=== PATIENT | female | born 1990 | race African-American/Black ===

== ENCOUNTER 2019-08-30 00:17 | Day surgery (SDC) | payer OTHER, SELFPAY ==
[2019-08-16 13:50] VITALS: BMI 30.2
[2019-08-30] VITALS (10 sets, daily range): BP systolic 99–122; BP diastolic 55–65; PULSE 87–105; RESP 14–16; TEMP 36.6–36.7; O2SAT 94–100
[2019-08-30] MEDS: LACTATED RINGERS 1,000 ML 30 ML IV CONT ×2 (11:50→15:28)
--- NOTE | 2019-08-30 12:07 | WPDHPUPDATE1 ---
History and Physical Update Update Date/Time: 08/30/19 12:07 History and Physical has been reviewed, including an updated exam of the patient. There are NO changes in the patient's condition. Risks, benefits, and alternatives have been discussed and questions answered. Patient agrees to proceed with procedure.
--- NOTE | 2019-08-30 12:27 | WPDANESEPPF ---
Anes - Initial Pre Proc Eval Procedure: Operation Date: 08/30/19 13:30 Proposed Procedures p Laparoscopic Bilateral Ovarian Cystectomy with Cauterization of Endometrosis - Carie Dao MD Date/Time: 08/30/19 12:27 Surgeon: Carie Dao MD Pre Op Diagnosis: Lt Sided Ovarian Cyst, Pelvic Pain Patient Data Age: 28 Gender: F Height: 5 ft 4 in Weight: 77.8 kg Last Vital Signs Temp 36.6 C 08/30/19 12:02 Pulse 87 08/30/19 12:02 Resp 16 08/30/19 12:02 BP 106/60 08/30/19 12:02 Pulse Ox 100 08/30/19 12:02 Allergies Allergy/AdvReac Type Severity Reaction Status Date / Time No Known Allergies Allergy Verified 08/30/19 11:33 Home Medications Medication Instructions Recorded Confirmed Type cyclobenzaprine 10 mg PO TID PRN 3 Days #10 tablet 06/10/19 08/30/19 Rx Patient hx anesthesia problems: none Family hx anesthesia problems: none PMFSH Social History Social History Gender identity (if verbalized by the patient): Female Anes - Eval Final PreProcedure Day of Procedure 08/30/19 12:27 Patient weight: overweight Heart: regular rate and rhythm Lungs: clear to auscultation Airway: Mallampati scale class II Neurological: alert and oriented Last oral intake: >/= 8 hours ASA classification: II Emergent: no Anesthetic plan: proceed Anesthesia type and monitoring: general ETT and standard monitoring Informed Consent: The patient's anesthetic plan and its attendant risks and benefits were discussed with the patient/family/POA. Questions were solicited and answers provided to the satisfaction of the patient/family/POA.
--- NOTE | 2019-08-30 15:41 | PM.OP ---
Procedure Note - Brief Procedure Note - Brief Date of procedure: 08/30/19 Pre-op diagnosis: Lt Sided Ovarian Cyst, Pelvic Pain Post-op diagnosis: other (pelvic pain, bilateral ovarian endometriomas, endometriosis, extensive pelvic adhesions) Procedure performed: L/S bilateral ovarian cystectomies, excision of endometriosis, extensive lysis of adhesions (by myself first the Anesthesia: GETA Surgeon: Carie Dao MD Estimated blood loss (mL): 75 Drains: No Packing: No Pathology: yes Complications: No immediate complications Condition: stable Disposition: PACU Findings: Extensive adhesions involving colon, appendix, uterus, bilateral ovaries; endometriomas of both ovaries; endometriosis implants on both sides of pelvic peritoneum; normal uterus other than adhesions; normal fallopian tubes with minimal adhesions
--- NOTE | 2019-08-30 16:19 | SUR.PHASEI ---
1620 - family updated on pt's status
--- NOTE | 2019-08-30 17:33 | P.OP_ITS ---
Procedure Note - Detailed Date of procedure: 08/30/19 Pre-op diagnosis: Lt Sided Ovarian Cyst, Pelvic Pain Post-op diagnosis: other (Pelvic adhesions) Procedure performed: Laparoscopic enterolysis Description of procedure: * I was called by Dr. Dao to evaluate the patient intraoperatively. Patient was already intubated, prepped and draped, with ports in place. Bilateral ovarian cystectomy had already been performed. There were dense adhesions in the pelvis with the sigmoid colon and rectum adherent to the posterior wall of the uterus. I was asked to evaluate the patient and help take down any further adhesions to allow for adequate visualization of the entire uterus. I carefully inspected the abdomen and pelvis. Careful sharp and blunt dissection was carried out laparoscopically along the anterior surface of the rectum going down distally. The posterior wall of the uterus as well as parts of the wall of the ovary were carefully dissected free from the sigmoid colon and rectum. The appendix was also adher ent down in this region and this was carefully freed up to allow for careful inspection. No further abnormalities were noted along these areas, and the bowel all appeared healthy and viable. Most of the posterior wall of the uterus was able to be visualized, and no other pathology was noted, therefore no further adhesiolysis was performed at this point. The procedure was then returned back over to the hands of Dr. Dao. Please refer to her operative report for further details. Anesthesia: GETA Surgeon: Janak Martinez DO Estimated blood loss (mL): 5 Complications: No immediate complications Findings: This is a 28-year-old woman who presented for laparoscopic bilateral ovarian cystectomy. Intraoperatively, she was found to have significant adhesions of the sigmoid colon and rectum to the patient's ovary and uterus. I was called in to evaluate and possibly assist with further adhesiolysis. The uterus appeared densely adherent to the sigmoid colon and rectum, therefore I will assist with adhesiolysis for further visualization with the procedure. Due to patient already being intubated, consent unable to be obtained but implied due to the nature of the procedure. Careful laparoscopic evaluation was performed. Ovarian cystectomy had already been performed. There were still several adhesions of the right ovary and posterior uterus on to the distal sigmoid and rectum. I carefully took down some of these adhesions using blunt dissection and sharp dissection with laparoscopic scissors. This allowed me to visualize most of the sigmoid colon and rectum. This appeared to be almost completely freed up from the uterus. There did not appear to be any injuries to the bowel, and no other significant abnormalities were noted.
--- NOTE | 2019-08-30 18:45 | OP_ITS ---
DATE OF PROCEDURE: 08/30/2019 PREOPERATIVE DIAGNOSES: Pelvic pain and bilateral ovarian cysts. POSTOPERATIVE DIAGNOSES: Pelvic pain, bilateral endometriomas, endometriosis, and extensive pelvic adhesions. PROCEDURE PERFORMED: Laparoscopic bilateral ovarian cystectomies, excision of endometriosis, extensive lysis of adhesions first by myself and then further lysis of adhesions by Dr. Martinez. INTRAOPERATIVE CONSULTATION BY: Dr. Martinez. ANESTHESIA: General endotracheal tube. ESTIMATED BLOOD LOSS: 75 mL. COMPLICATIONS: None. FINDINGS: Bilaterally enlarged ovaries both filled with chocolate fluid consistent with endometriomas, extensive endometriosis implants along the pelvic peritoneum, extensive dense adhesions involving the colon to the uterus, bilateral ovaries to the colon and uterus, appendix to the colon and right ovary. INDICATIONS: A 28-year-old G0 who came for pelvic pain, was found to have bilateral moderate-sized ovarian cysts suspicious for endometriomas on ultrasound. She opted and signed consent for laparoscopic bilateral ovarian cystectomies after the risks, benefits, complications, and alternatives were discussed. DESCRIPTION OF PROCEDURE: For the procedure, she was taken to the operating room where general anesthesia was obtained. She was prepared and draped in the normal sterile fashion in the dorsal lithotomy position. Marcaine was injected infraumbilically and a 5 mm skin incision was made in the infraumbilical fold with a scalpel. A 5 mm non-bladed trocar was then placed with the camera in the trocar under direct visualization. Insufflation was begun and she was placed in Trendelenburg. Another 5 mm trocar was placed in the right lower quadrant under direct visualization. Inspection of the pelvis revealed the findings as noted above. A 10 mm trocar was then placed in the midline suprapubic area under direct visualization. First, adhesions from the right adnexa to the right pelvic sidewall were taken down. There were some filmy adhesions between the uterus and the left anterior pelvic peritoneum that were taken down easily. The appendix was stretched down in between the 2 ovaries and adherent to the colon and right ovary and the colon was densely adherent to the posterior midline of the uterus. The adhesions between the ovaries and uterus were removed to the extent possible and between the ovaries and colon. I could never develop a good plane between the uterus and colon. The right ovarian cyst was ruptured inadvertently trying to do lysis of adhesions with large amount of chocolate-appearing fluid noted. The cyst wall was then teased out using a laparoscopic grasper and that ovary was copiously irrigated and then found to be hemostatic. With further lysis of adhesions, erring on the side of the ovary rather than the uterus or colon, the left ovarian cyst was inadvertently ruptured as well with chocolate fluid noted from that ovary as well. That cyst wall was also removed to the extent possible and that cyst cavity was irrigated. The appendix and colon were still densely adherent to the posterior uterus and the appendix to the right ovary. I came to a point where I did not feel safe to proceed with any further lysis of adhesions and asked for an intraoperative consultation from Dr. Martinez from General Surgery. He did come in and did further lysis of adhesions mainly between the posterior uterus and colon as well as the ovaries to some degree. He was able to free up the appendix and most of the adhesions between the colon and uterus and eventually advised quitting with the lysis of adhesions, so the pelvis was irrigated once again. All operative sites were noted to be hemostatic. The Alan-Milan device along with a 0 Vicryl was used to close the suprapubic t
== END 2019-08-30 17:57 | disposition home or self-care (01) ==
PROVIDERS: Visit Provider Obstetrics & Gynecology
PROC: (CPT 49320; principal; 2019-08-30 13:30)
DX: N83.202 Unspecified ovarian cyst, left side (principal); N83.201 Unspecified ovarian cyst, right side; N80.3 Endometriosis of pelvic peritoneum; N73.6 Female pelvic peritoneal adhesions (postinfective); R10.2 Pelvic and perineal pain
CPT/HCPCS: 58662; 88305; A9270; J1100; J2250; J2270; J2405; J2704; J7120

== ENCOUNTER 2021-02-13 10:37 | Emergency (ER) | payer OTHER, SELFPAY ==
--- NOTE | ~2021-02-13 | XR_ITS ---
EXAMINATION: XR knee RT 3V DATE: 02/13/2021 12:04 INDICATION: Right knee pain. TECHNIQUE: 3 views of right knee were obtained. COMPARISON: None. FINDINGS: Bone alignment is normal. No fracture. Joint spaces are normal. No knee joint effusion. IMPRESSION: 1. Normal right knee. Reviewed, dictated and finalized at location A. IMPRESSION: 1. Normal right knee.
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
[2021-02-13 10:41] VITALS: BP 119/74; PULSE 81; RESP 14; TEMP 37.1; O2SAT 100
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
--- NOTE | 2021-02-13 11:52 | PC.NURSE ---
Patient to radiology.
[2021-02-13] MEDS: KETOROLAC 30 MG/ML VIAL (*BKC) IM (12:13)
[2021-02-13 12:43] VITALS: TEMP 37.1
[2021-02-13 12:51] VITALS: BP 111/70; PULSE 72; RESP 20; O2SAT 100
== END 2021-02-13 12:55 | disposition home or self-care (01) ==
PROVIDERS: Emergency Provider Emergency Medicine
DX: S13.4XXA Sprain of ligaments of cervical spine, initial encounter (principal); S50.02XA Contusion of left elbow, initial encounter; V49.40XA Driver injured in collision with unspecified motor vehicles in traffic accident, initial encounter
CPT/HCPCS: 72040; 73080; 73562; 96372; 99284; J1885; L0140

== ENCOUNTER → 2022-11-27 09:17 | Outpatient (CLI) | payer OTHER, SELFPAY ==
--- NOTE | ~2022-11-27 | US_ITS ---
US OB <= 14 weeks fetus DATE: 11/27/2022 09:40 INDICATION: Uncertain dates TECHNIQUE: Real-time and color flow imaging COMPARISON: None FINDINGS: The uterus measures 15.5 cm height, 8.1 cm AP and 11.3 cm transverse dimension. There is an intrauterine gestational sac with live covarrubias fetus. The placenta is posterior. Normal amount of amniotic fluid. heart rate of 152 bpm. [place]-rump length averages 6.28 cm consistent with 12 weeks 5 days +/- 1 week 1 day estimated gestati onal age. The ovaries are not visualized. No pelvic free fluid collection is noted. IMPRESSION: Estimated gestational age of 12 weeks 5 days +/- 1 week 1 day; MARIANN: 06/06/2023 Reviewed, dictated and finalized at Location A. Reviewed, dictated and finalized at location []
== END ==
PROVIDERS: PCP Nurse Practitioner; Visit Provider Nurse Practitioner
DX: Z36.87 Encounter for antenatal screening for uncertain dates (principal); Z3A.12 12 weeks gestation of pregnancy
CPT/HCPCS: 76801

== ENCOUNTER 2023-01-07 09:49 | Outpatient (CLI) | payer OTHER, SELFPAY ==
--- NOTE | ~2023-01-07 | US_ITS ---
EXAMINATION: US OB /maternal detail DATE: 01/07/2023 10:45 INDICATION: anatomic survey. TECHNIQUE: Real-time ultrasound of the pelvis was performed. COMPARISON: Ultrasound 11/27/2022 FINDINGS: There is a single living fetus in variable presentation. The placenta is posterior, 3.0 cm from the cervix. heart rate is 138 beats per minute (bpm). The amniotic fluid volume is subjectively nor mal. The following biometric data were obtained: Biparietal diameter (BPD): 4.2 cm; head circumference (HC): 15.6 cm; abdominal circumference (AC): 14 .3 cm; femur length (FL): 3.2 cm. These measurements are concordant. Estimated weight is 303 g +/- 45 g, which correlates with the 92nd percentile when 06/05/23 is used as estimated date of delivery. As single measurements, these parameters are each equal to the following estimated gestational ages: BPD: 18 weeks 6 days. HC: 18 weeks 3 days. AC: 19 weeks 4 days. FL: 20 weeks 0 days. estimated gestational age based solely on measurements from this exam is 19 weeks 2 days +/- 1 weeks 2 days. The cerebral ventricles, cerebellum, cisterna magna, nuchal fold, and visualized portions of the spin e are normal. The heart is normal. The diaphragm, stomach, kidneys, and bladder are normal. There are two umbilical arteries to yield a 3-vessel cord. The cord insertion is normal. IMPRESSION: 1. Single living fetus in variable presentation. 2. Large for gestational age. Estimated weight is 303 g +/- 45 g, which correlates with the 92n d percentile when 06/05/23 is used as estimated date of delivery. 3. Normal anatomic survey. Reviewed, dictated and finalized at location A. IMPRESSION: 1. Single living fetus in variable presentation. 2. Large for gestational age. Estimated weight is 303 g +/- 45 g, which c orrelates with the 92nd percentile when 06/05/23 is used as estimated date of niesha paredes. 3. Normal anatomic survey.
== END 2023-01-07 09:50 | disposition home or self-care (01) ==
PROVIDERS: PCP Nurse Practitioner; Visit Provider Obstetrics & Gynecology Gynecology
DX: Z36.9 Encounter for antenatal screening, unspecified (principal); Z3A.19 19 weeks gestation of pregnancy
CPT/HCPCS: 76805

== ENCOUNTER 2023-03-10 12:31 | Outpatient (CLI) | payer OTHER, SELFPAY ==
[2023-03-10 12:53] LABS: Hematocrit 34.1 % (37.0-47.0); Hemoglobin 10.8 g/dL (12.0-15.0)
[2023-03-10 13:47] LABS: HIV 1/2 Ab P24 Ag Result Negative (Negative)
[2023-03-12 12:54] LABS: Vitamin D 25 Hydroxy 45.9 ng/mL
== END 2023-03-10 12:32 | disposition home or self-care (01) ==
PROVIDERS: PCP Nurse Practitioner; Visit Provider Advanced Practice Midwife
DX: Z36.9 Encounter for antenatal screening, unspecified (principal); Z3A.00 Weeks of gestation of pregnancy not specified
CPT/HCPCS: 36415; 82306; 85014; 85018; 86703; G0432

== ENCOUNTER 2023-03-14 10:37 | Outpatient (CLI) | payer OTHER, SELFPAY ==
--- NOTE | ~2023-03-14 | US_ITS ---
EXAMINATION: US OB follow up DATE: 03/14/2023 11:50 INDICATION: Gestational diabetes during second trimester TECHNIQUE: Real-time ultrasound of the pelvis was performed. The interpreting radiologist was not pre sent for the study. COMPARISON: None. FINDINGS: There is a single living fetus in vertex presentation. The placenta is posterior. car diac activity and movement are noted. heart rate is 137 beats per minute (bpm). The amnio tic fluid index is 14.3 cm which is normal. The following biometric data were obtained: Biparietal diameter (BPD): 6.8 cm; head circumference (HC): 24.9 cm; abdominal circumference (AC): 24 .1 cm; femur length (FL): 5.4 cm. These measurements are concordant. Estimated weight is 1195 g +/- 179 g, which correlates with the 40th percentile when 06/05/2023 is used as estimated date of delivery. As single measurements, these parameters are each equal to the following estimated gestational ages w ith ranges of +/- 2 standard deviations: BPD: 27 weeks 2 days +/- 2 weeks 1 days. HC: 27 weeks 0 days +/- 2 weeks 0 days. AC: 28 weeks 3 days +/- 2 weeks 1 days. FL: 28 weeks 4 days +/- 2 weeks 1 days. estimated gestational age based solely on measurements from this exam is 27 weeks 6 days +/- 2 weeks 0 days. IMPRESSION: 1. Single living fetus in vertex presentation. 2. Normal amniotic fluid index. 3. Estimated weight is 1195 g +/- 179 g, which correlates with the 40th percentile when is used as estimated date of delivery. Reviewed, dictated and finalized at location B. IMPRESSION: 1. Single living fetus in vertex presentation. 2. Normal amniotic fluid index. 3. Estimated weight is 1195 g +/- 179 g, which correlates with the 40th p ercentile when 06/05/2023 is used as estimated date of delivery.
== END 2023-03-14 10:38 | disposition home or self-care (01) ==
PROVIDERS: PCP Obstetrics & Gynecology Gynecology; Visit Provider Advanced Practice Midwife
DX: O24.414 Gestational diabetes mellitus in pregnancy, insulin controlled (principal); Z3A.00 Weeks of gestation of pregnancy not specified; Z79.4 Long term (current) use of insulin
CPT/HCPCS: 76816

== ENCOUNTER 2023-04-17 09:31 | Outpatient (CLI) | payer OTHER, SELFPAY ==
--- NOTE | ~2023-04-17 | US_ITS ---
EXAMINATION: US OB follow up DATE: 04/17/2023 10:35 INDICATION: Gestational diabetes, third trimester TECHNIQUE: Real-time ultrasound of the pelvis was performed. The interpreting radiologist was not pre sent for the study. COMPARISON: 03/14/2023 FINDINGS: There is a single living fetus in vertex presentation. The placenta is posterior. car diac activity and movement are noted. heart rate is 133 beats per minute (bpm). The amnio tic fluid index is 14.3 cm which is normal (normal range: 8.3 cm to 24.5 cm). The following biometric data were obtained: Biparietal diameter (BPD): 7.6 cm; head circumference (HC): 29.9 cm; abdominal circumference (AC): 29 .1 cm; femur length (FL): 6.6 cm. These measurements are concordant. Estimated weight is 2121 g +/- 318 g, which correlates with the 44th percentile when 06/05/2016 is used as estimated date of delivery. As single measurements, these parameters are each equal to the following estimated gestational ages w ith ranges of +/- 2 standard deviations: BPD: 30 weeks 3 days +/- 3 weeks 1 days. HC: 33 weeks 2 days +/- 3 weeks 0 days. AC: 33 weeks 1 days +/- 3 weeks 0 days. FL: 33 weeks 6 days +/- 3 weeks 0 days. estimated gestational age based solely on measurements from this exam is 32 weeks 5 days +/- 2 weeks 2 days. IMPRESSION: 1. Single living fetus in vertex presentation. 2. Normal amniotic fluid index. 3. Estimated weight is 2121 g +/- 318 g, which correlates with the 44th percentile when 016 is used as estimated date of delivery. Reviewed, dictated and finalized at location F. IMPRESSION: 1. Single living fetus in vertex presentation. 2. Normal amniotic fluid index. 3. Estimated weight is 2121 g +/- 318 g, which correlates with the 44th p ercentile when 06/05/2016 is used as estimated date of delivery.
== END 2023-04-17 09:32 | disposition home or self-care (01) ==
PROVIDERS: PCP Obstetrics & Gynecology Gynecology; Visit Provider Advanced Practice Midwife
DX: O24.414 Gestational diabetes mellitus in pregnancy, insulin controlled (principal); Z79.4 Long term (current) use of insulin; Z3A.32 32 weeks gestation of pregnancy
CPT/HCPCS: 59025; 76816

== ENCOUNTER 2023-04-25 17:58 | Outpatient (CLI) | payer OTHER, SELFPAY ==
[2023-04-25 18:15] LABS: Basophils Percent Auto 0.2 % (0.2-1.2); Eosinophils Absolute Auto 0.1 K/mm3 (0-0.3); Eosinophils Percent Auto 0.4 % (0-4.4); Hematocrit 34.3 % (37.0-47.0); Hemoglobin 10.6 g/dL (12.0-15.0); Immature Granulocyte Percent A 0.9 % (0-0.5); Lymphocytes Absolute Auto 1.44 K/mm3 (0.9-3.2); Lymphocytes Percent Auto 12.6 % (18.3-44.2); Mean Corpuscular HGB Conc 30.9 g/dl (32-36); Mean Corpuscular Hemoglobin 26.7 pg (26-34); Mean Corpuscular Volume 86.4 fl (80-100); Monocytes Absolute Auto 0.8 K/mm3 (0.1-0.6); Monocytes Percent Auto 6.5 % (2.6-8.5); Neutrophils Absolute Auto 9.1 K/mm3 (1.3-6.7); Neutrophils Percent Auto 79.4 % (45.5-73.1); Platelet Count Result 260 k/mm3 (150-375); Red Blood Count 3.97 M/mm3 (4.2-5.4); Red Cell Distribution Width 14.6 % (11.5-14.5); White Blood Count 11.5 K/mm3 (4.5-10.0)
[2023-04-25 18:33] LABS: Hemoglobin A1C 5.4 % (<5.7)
== END 2023-04-25 17:59 | disposition home or self-care (01) ==
LOC: ANHLAB 17:59
PROVIDERS: Visit Provider Obstetrics & Gynecology Gynecology
DX: O24.414 Gestational diabetes mellitus in pregnancy, insulin controlled (principal); O99.413 Diseases of the circulatory system complicating pregnancy, third trimester; Z79.4 Long term (current) use of insulin
CPT/HCPCS: 36415; 83036; 85025

== ENCOUNTER 2023-05-13 10:43 | Outpatient (CLI) | payer OTHER, SELFPAY ==
--- NOTE | ~2023-05-13 | US_ITS ---
EXAMINATION: US OB follow up DATE: 05/13/2023 12:17 INDICATION: Gestational diabetes during third trimester TECHNIQUE: Real-time ultrasound of the pelvis was performed. The interpreting radiologist was not pre sent for the study. COMPARISON: 04/17/2023 FINDINGS: There is a single living fetus in vertex presentation. The placenta is posterior. heart rate i s 134 beats per minute (bpm). The amniotic fluid index is 7.7 cm, which is at the lower limits of no rmal (5th%-95%: 7.7-24.9 cm at 36 weeks estimated gestational age). The following biometric data were obtained: BPD: 8.2 cm -> 33 weeks 0 days Head circumference: 31.9 cm -> 35 weeks 6 days Abdominal circumference: 33.9 cm -> 37 weeks 5 days Femur length: 7.2 cm -> 36 weeks 6 days Femur length to biparietal diameter ratio of 87.7 is slightly greater than the second standard deviat ion (71-87). These measurements are otherwise concordant. Head circumference to abdominal circumference ratio: 0.94 (normal range 0.93-1.08). Estimated weight: 3028 g (+/-) 4 g or 546 lbs. 11 oz. (+/-) 16 oz. IMPRESSION: 1. Single living fetus in vertex presentation with heart rate of 134 bpm. 2.. Amniotic fluid index of 7.7 cm is at the lower limits of normal. 3. Estimated weight is 56th percentile by Hadlock criteria when 06/05/2023 is used as the estim ated date of delivery (MARIANN). Please correlate with clinical information or earlier ultrasounds for mo st accurate MARIANN. 4. Femur length to biparietal diameter ratio of 87.7 is minimally greater than the second standard de viation. Reviewed, dictated and finalized at location A. [employer] DEVELOPER IMPRESSION: 1. Single living fetus in vertex presentation with heart rate of 134 bpm. 2.. Amniotic fluid index of 7.7 cm is at the lower limits of normal. 3. Estimated weight is 56th percentile by Hadlock criteria when 3 is used as the estimated date of delivery (MARIANN). Please correlate with clinic al information or earlier ultrasounds for most accurate MARIANN. 4. Femur length to biparietal diameter ratio of 87.7 is minimally greater than the second standard deviation.
== END 2023-05-13 10:44 | disposition home or self-care (01) ==
PROVIDERS: Visit Provider Advanced Practice Midwife
DX: O24.414 Gestational diabetes mellitus in pregnancy, insulin controlled (principal); Z79.4 Long term (current) use of insulin; Z3A.00 Weeks of gestation of pregnancy not specified
CPT/HCPCS: 76816

== ENCOUNTER 2023-05-23 14:41 | Outpatient (RCR) | payer OTHER, SELFPAY ==
[2023-04-17 11:47] VITALS: BP 114/71; PULSE 97
[2023-04-21 12:55] VITALS: BP 116/67; PULSE 96
[2023-04-30 13:16] VITALS: BP 110/70; PULSE 97
[2023-05-07 09:13] VITALS: BP 115/63; PULSE 94
[2023-05-12 09:05] VITALS: BP 114/71; PULSE 105
[2023-05-19 09:15] VITALS: BP 115/61; PULSE 97
[2023-05-23 15:15] VITALS: BP 113/72; PULSE 92
== END 2023-07-16 23:59 | disposition home or self-care (01) ==
LOC: ANHOBOP 14:41
PROVIDERS: Visit Provider Obstetrics & Gynecology Gynecology
DX: O24.419 Gestational diabetes mellitus in pregnancy, unspecified control (principal); Z3A.33 33 weeks gestation of pregnancy; Z3A.34 34 weeks gestation of pregnancy; Z3A.35 35 weeks gestation of pregnancy; Z3A.36 36 weeks gestation of pregnancy; Z3A.37 37 weeks gestation of pregnancy; Z3A.38 38 weeks gestation of pregnancy
CPT/HCPCS: 59025

== ENCOUNTER 2023-05-29 00:09 | Inpatient (IN) | payer OTHER, SELFPAY ==
[2023-05-29] VITALS (248 sets, daily range): BP systolic 73–217; BP diastolic 41–198; PULSE 35–171; TEMP 35.9–37.2; O2SAT 67–100
[2023-05-29 04:47] LABS: Glucose Point of Care 78 mg/dl (65-105)
[2023-05-29 04:49] LABS: Basophils Percent Auto 0.3 % (0.2-1.2); Eosinophils Absolute Auto 0.1 K/mm3 (0-0.3); Eosinophils Percent Auto 0.8 % (0-4.4); Hematocrit 35.2 % (37.0-47.0); Hemoglobin 11.1 g/dL (12.0-15.0); Immature Granulocyte Percent A 0.9 % (0-0.5); Lymphocytes Percent Auto 13.9 % (18.3-44.2); Mean Corpuscular HGB Conc 31.5 g/dl (32-36); Mean Corpuscular Volume 85.6 fl (80-100); Monocytes Absolute Auto 0.7 K/mm3 (0.1-0.6); Monocytes Percent Auto 5.7 % (2.6-8.5); Neutrophils Percent Auto 78.4 % (45.5-73.1); Platelet Count Result 234 k/mm3 (150-375); Red Blood Count 4.11 M/mm3 (4.2-5.4); Red Cell Distribution Width 15.1 % (11.5-14.5); White Blood Count 11.5 K/mm3 (4.5-10.0)
--- NOTE | 2023-05-29 06:56 | LDADM ---
This patient, Raina Castaneda, was admitted to Labor/Delivery/Recovery 108 on 05/29/23 at 00:09. Plans for labor, pain management and were discussed with patient. Patient/family oriented to hospital policies and general routines including ID bracelet, bed and alarms, visiting hours, pain management, procedures, bathroom and other care routines, personal items, smoking policy, room service/diet and guest tray routines, infant security routines, and visiting hours. Patient/Family are encouraged to report perceived risks to care and to ask questions if they do not understand what they are told or what they should do. See [facility] for further documentation.
--- NOTE | 2023-05-29 06:57 | LDADM ---
This patient, Raina Castaneda, was admitted to Labor/Delivery/Recovery 108 on 05/29/23 at 00:09. Mom states she is scheduled for IOL tonight. Jax Flores CNM notified and verified IOL. Orders recieved to do NST now and start IOL when safe to do so due to no open labor rooms. Plans for labor, pain management and were discussed with patient. Patient/family oriented to hospital policies and general routines including ID bracelet, bed and alarms, visiting hours, pain management, procedures, bathroom and other care routines, personal items, smoking policy, room service/diet and guest tray routines, security routines, and visiting hours. Patient/Family are encouraged to report perceived risks to care and to ask questions if they do not understand what they are told or what they should do. See OBIX for further documentation.
[2023-05-29 07:32] LABS: Glucose Point of Care 91 mg/dl (65-105)
--- NOTE | 2023-05-29 07:56 | WPDOBADMIT ---
Obstetrics - Admit Note Admission Note: record reviewed. No pertinent additions to the history and/or any subsequent changes in the physical findings that are not consistent with the expected course of the were found. Additions to the history and/or subsequent changes in the physical findings follow. Here for MIL at 39 wks for GDMA2. Cervix 2-3/50/-2 AROM with clear fluid. FHTs reactive. Pitocin per protocol
[2023-05-29] MEDS: fentaNYL CITRATE INJ (*CRX) 100 MCG/2 ML VIAL 50 MCG IV PUSH (11:28)
[2023-05-29] MEDS: LACTATED RINGERS 1,000 ML 125 ML IV CONT ×3 (11:33→22:06)
[2023-05-29 11:39] LABS: Glucose Point of Care 118 mg/dl (65-105)
--- NOTE | 2023-05-29 12:05 | WPDANESEPP ---
Anes - Eval Pre Procedure Procedure: labor pain management Date/Time: 05/29/23 12:05 Surgeon: Torres Preop Diagnosis: pain during labor Pre Op Diagnosis: IOL Patient Data Age: 32 Gender: F Height: Weight: Last Vital Signs Temp 97.1 F L 05/29/23 11:40 Pulse 98 05/29/23 12:01 BP 85/44 L 05/29/23 12:01 O2 Del Method Room Air 05/29/23 06:56 Allergies Allergy/AdvReac Type Severity Reaction Status Date / Time No Known Allergies Allergy Verified 05/29/23 06:52 Home Medications Medication Instructions Recorded Confirmed Type Classic 1 tab-cap PO DAILY 05/06/23 05/06/23 History aspirin 81 mg tablet 81 mg PO DAILY 05/06/23 05/06/23 History ferrous sulfate 325 mg (65 mg 325 mg PO DAILY 05/06/23 05/06/23 History iron) tablet insulin NPH isoph U-100 human 100 5 unit subcut HS 05/06/23 05/06/23 History unit/mL subcutaneous cartridge vitamin A-vitamin D3 50,000 units PO WEEKLY 05/06/23 05/06/23 History Laboratory Tests 05/29/23 05/29/23 05/29/23 04:35 04:40 07:26 WBC 11.5 H K/mm3 (4.5-10.0) RBC 4.11 L M/mm3 (4.2-5.4) Hgb 11.1 L g/dL (12.0-15.0) Hct 35.2 L % (37.0-47.0) MCV 85.6 fl (80-100) MCH 27.0 pg (26-34) MCHC 31.5 L g/dl (32-36) RDW 15.1 H % (11.5-14.5) Plt Count 234 k/mm3 (150-375) MPV 10.0 fl (7.4-10.4) Immature Gran % (Auto) 0.9 H % (0-0.5) Neut % (Auto) 78.4 H % (45.5-73.1) Lymph % (Auto) 13.9 L % (18.3-44.2) [place] % (Auto) 5.7 % (2.6-8.5) Eos % (Auto) 0.8 % (0-4.4) Baso % (Auto) 0.3 % (0.2-1.2) Lymph # (Auto) 1.60 K/mm3 (0.9-3.2) [place] # (Auto) 0.7 H K/mm3 (0.1-0.6) Eos # (Auto) 0.1 K/mm3 (0-0.3) Baso # (Auto) 0.0 K/mm3 (0.0-0.1) Abs Immat Gran (auto) 0.10 H K/mm3 (0.00-0.031) Absolute Neuts (auto) 9.0 H K/mm3 (1.3-6.7) Absolute Nucleated RBC 0.0 K/mm3 (0.0-0.012) Nucleated RBC % 0.0 % (0.0-0.2) POC Capillary Glucose 78 mg/dl 91 mg/dl (65-105) (65-105) RPR Pending Blood Type O Positive Antibody Screen Negative 05/29/23 11:36 WBC RBC Hgb Hct MCV MCH MCHC RDW Plt Count MPV Immature Gran % (Auto) Neut % (Auto) Lymph % (Auto) [place] % (Auto) Eos % (Auto) Baso % (Auto) Lymph # (Auto) [place] # (Auto) Eos # (Auto) Baso # (Auto) Abs Immat Gran (auto) Absolute Neuts (auto) Absolute Nucleated RBC Nucleated RBC % POC Capillary Glucose 118 H mg/dl (65-105) RPR Blood Type Antibody Screen Patient hx anesthesia problems: none Family hx anesthesia problems: none Results Review: All pre-operative results and documents have been reviewed as part of the pre-operative evaluation. [facility] Family History Family History Other Unknown family medical history Social History Social History Smoking status: Never smoker Substance use: never Lack of Transportation: No Lack of Food: Never True Current Housing: I Have Housing Concerned About Future Housing: No Difficulty Paying Gas/Electric Bills: No Difficulty Paying for Meds: No Currently Unemployed: No Education: High School Diploma/GED Difficulty w/ Childcare or Family Care: No Gender identity (if verbalized by the patient): Female Spiritual care concerns: No Exam Day of Procedure 05/29/23 12:05
[2023-05-29 13:11] LABS: Glucose Point of Care 95 mg/dl (65-105)
[2023-05-29 14:08] LABS: Rapid Plasma Reagin Non-Reactive (NonReactive)
[2023-05-29 15:31] LABS: Glucose Point of Care 80 mg/dl (65-105)
[2023-05-29 17:31] LABS: Glucose Point of Care 84 mg/dl (65-105)
[2023-05-30] VITALS (26 sets, daily range): BP systolic 96–133; BP diastolic 56–86; PULSE 52–174; RESP 16–18; TEMP 36.4–37.7; O2SAT 83–100
[2023-05-30] MEDS: OXYTOCIN 30 UNITS/NS 500 ML 30 UNITS/500 ML BAG 125 UNITS IV CONT ×2 (00:24→02:32)
--- NOTE | 2023-05-30 00:34 | P.PCNOB_ITS ---
OB - Vaginal Delivery Note Procedure Delivery date: 05/30/23 Events: Gestational Diabetes (GDMA2) Induction method: AROM and Per Pitocin Protocol Delivery monitor: External FHT and Internal Uterine Route of delivery: Laceration Description: Perineal - 2nd Degree Delivery repair: vicryl (3-0) Specimen: Yes (placenta) Quantitative Blood Loss (ml): 250 Anesthesia type: Epidural Disposition: Floor Complications: Other complications (shoulder dystocia) Narrative: on my arrival. As head delivered over one contraction, immediate turtle sign.Patient placed in Natalie position and head rotated externally. No release with normal traction. Hand placed posteriorly and posterior shoulder delivered over 2 pushes. One minute total from head to delivery. Per peds, bilateral arms with no evidence of injury. [place] Baby Date of : 05/30/23 Weeks of gestation at delivery: 39 (39 1/7) Infant gender: Female presentation: vertex position: Right Occiput Anterior Placenta delivery description: Spontaneous and Normal Configuration Cord Vessel Description: 3 Vessels and Clamped/Cut
--- NOTE | 2023-05-30 00:38 | PM.OBDSVD ---
DS: Admitting Diagnosis Discharge Date 05/31/23 Admitting Diagnosis IUP 39 wks for MIL GDMA2 DS: Discharge Diagnosis Discharge Diagnosis (1) (normal spontaneous vaginal delivery): Code(s): O80 - Encounter for full-term uncomplicated delivery Status: Acute (2) Shoulder dystocia, delivered, current hospitalization: Code(s): O66.0 - Obstructed labor due to shoulder dystocia Status: Acute OB - DS: Summary OB Procedures : NST and Ultrasound OB Procedures Intrapartum: Spontaneous Vag Delivery and Other (management of shoulder dystocia) OB Procedures: : None Peripartum Data Delivery Method: Natural Vaginal Laceration Description: Perineal - 2nd Degree Episiotomy description: None complications: none Status at Discharge Functional status at discharge: independent ambulation Overall status at discharge: patient is progressing back to baseline Time Spent with Patient Time attestation: Total time spent providing and/or coordinating discharge services: DS: Data Data Completed and Pending Labs on day of discharge: Labs from last 24 hours 05/29/23 05/29/23 05/29/23 17:29 15:20 13:09 WBC RBC Hgb Hct MCV MCH MCHC RDW Plt Count MPV Immature Gran % (Auto) Neut % (Auto) Lymph % (Auto) [place] % (Auto) Eos % (Auto) Baso % (Auto) Lymph # (Auto) [place] # (Auto) Eos # (Auto) Baso # (Auto) Abs Immat Gran (auto) Absolute Neuts (auto) Absolute Nucleated RBC Nucleated RBC % POC Capillary Glucose 84 80 95 RPR Blood Type Antibody Screen 05/29/23 05/29/23 05/29/23 11:36 07:26 04:40 WBC RBC Hgb Hct MCV MCH MCHC RDW Plt Count MPV Immature Gran % (Auto) Neut % (Auto) Lymph % (Auto) [place] % (Auto) Eos % (Auto) Baso % (Auto) Lymph # (Auto) [place] # (Auto) Eos # (Auto) Baso # (Auto) Abs Immat Gran (auto) Absolute Neuts (auto) Absolute Nucleated RBC Nucleated RBC % POC Capillary Glucose 118 H 91 78 RPR Blood Type Antibody Screen 05/29/23 04:35 WBC 11.5 H RBC 4.11 L Hgb 11.1 L Hct 35.2 L MCV 85.6 MCH 27.0 MCHC 31.5 L RDW 15.1 H Plt Count 234 MPV 10.0 Immature Gran % (Auto) 0.9 H Neut % (Auto) 78.4 H Lymph % (Auto) 13.9 L [place] % (Auto) 5.7 Eos % (Auto) 0.8 Baso % (Auto) 0.3 Lymph # (Auto) 1.60 [place] # (Auto) 0.7 H Eos # (Auto) 0.1 Baso # (Auto) 0.0 Abs Immat Gran (auto) 0.10 H Absolute Neuts (auto) 9.0 H Absolute Nucleated RBC 0.0 Nucleated RBC % 0.0 POC Capillary Glucose RPR Non-reactive Blood Type O Positive Antibody Screen Negative Discharge Plan Discharge Attending physician on discharge: Allison Macdonald Discharging Clinician: Allison Macdonald Anticipated Discharge Date/Time: 06/01/23 00:40 Patient Disposition: Home, Self-Care Activity: may shower and pelvic rest Diet: regular Discharge Instructions: Education: Mom and Baby Guide Given to: Mother Follow-Up: Call your delivering provider's office for an appointment to be seen in: 6 Weeks Mom and baby should come to the [facility] for the follow-up appointment. Appointment Date/Time: Friday, June 02, 2023 at 12:30 pm What to expect at your follow-up visit: Physical Assessment Call [phone] if you are unable to keep your appointment time. BREAST CARE: * Wear a snug supportive bra. * For engorgement discomfort: Breast Feeding: * Apply warm moist washcloths * Express milk as needed to relieve engorgement * Wear loose clothing Bottle Feeding: * May apply ice packs * For sore nipples: * Identify correct latch-on * Apply warm moist washcloths before and after nursing * Air dry nipples after nursing * May apply Lansinoh cream
--- NOTE | 2023-05-30 02:50 | OBPPTRN ---
Patient transferred to post room #276 via wheelchair. Oriented to unit, room, information board, rooming in, admission packet and security measures. Patient verbalizes understanding.
[2023-05-30] MEDS: IBUPROFEN 600 MG TABLET (03:06)
[2023-05-30 03:18] LABS: Glucose Point of Care 88 mg/dl (65-105)
[2023-05-30 03:18] LABS: Glucose Point of Care 86 mg/dl (65-105)
[2023-05-30] MEDS: WITCH HAZEL 40 PADS 1 PAD TOPICAL (04:04)
[2023-05-30] MEDS: BENZOCAINE 20% AER SPR (*SP) 56 GM CAN 1 SPRAY TOPICAL (04:04)
[2023-05-30] MEDS: MULTIVIT/MIN/PREN/FOL AC/IRON TABLET 1 TAB PO (07:38)
[2023-05-30] MEDS: IBUPROFEN 600 MG TABLET PO ×2 (09:05→16:54)
--- NOTE | 2023-05-30 11:31 | WPDANLDPN2 ---
Anes-Prog Note L&D Date/Time: 05/30/23 11:31 Comfortable throughout: labor and delivery Neuraxial method: epidural Epidural/Spinal procedure site: clean & non-tender Neuro status: Neuro function grossly intact. Cardiovascular status: normal Respiratory status: normal Airway patency: baseline Mental status: baseline Post-Op hydration status: normal Vital Signs: Last Vital Signs Temp 97.5 F L 05/30/23 08:59 Pulse 92 05/30/23 08:59 Resp 16 05/30/23 08:59 BP 105/70 05/30/23 08:59 Pulse Ox 98 05/30/23 08:59 O2 Del Method Room Air 05/30/23 03:10 Pain score (VAS): 2 I/O: Intake & Output 05/29/23 05/30/23 05/30/23 23:59 07:59 15:59 Intake Total 1000 240 Balance 1000 240 Post-procedural complaints: none Patient feedback: Patient satisfied with anesthetic care.
--- NOTE | 2023-05-30 16:11 | PC.NURSE ---
0900 Introductions were made, then consulted with patient to assess needs related to . Mother led the conversation with her?plans to feed?her and the?experience so far. Encouraged understanding of the benefits of skin to skin (demonstrating unwrapping infant and placing upright on her chest), stimulating with massage touch, changing positions to encourage wakefulness, how to watch for early feeding cues, responsive feeding, feeding on demand (aiming for 8-12 times in 24 hours, about every 2-3 hours), milk production, building/maintaining a milk supply, duration of feeding, signs of adequate intake/output and how to record on the feeding sheet. Mother works well with her with encouragement and education. Reviewed positioning and ear, shoulder, hip alignment, supporting the breast to facilitate a deep latch, asymmetrical latch (off-center), leading with the chin with a big, open, wide gape and body close to mother. Infant latched optimally to the right breast in football position. Baby sleepy at this time. Will call with next attempt. Education given to the mother of how to visualize the suckling (with good rocking jaw motion), swallows (dropping of the lower jaw) and how to listen for drinking at the breast (the ka sound). Infant was able to maintain latch without pain to mother protecting the nipple with optimal positioning and latching. Reviewed comfort measures of healing with a warm, wet washcloth to rinse breast, then leave open to air-dry, good handwashing when or touching the breast/nipples to prevent infection. Mother voiced understanding of skin to skin, stimulating with massage touch, responsive feedings, hand expressed colostrum, talking to infant to encourage if it has been 2 -2.5 hours since the start of the last , to call if does not latch, or if there is discomfort with . Resources used for education were facilitated with the mom and baby guide, Inpatient resources provided with business card, feeding sheet, name written on the communication board, and the mom/baby guide. Parents voiced understanding of information, demonstrated learning and will call if there is a request for assistance. Reported to the Primary RN.
--- NOTE | 2023-05-30 17:47 | PC.NURSE ---
1700 Pump given and patient instructed on proper use. Mom plans to pump after next feeding. Instructed on proper hygiene and cleanliness with pump use as well. Mother instructed to call for assistance if desired. Reported to RN.
[2023-05-31 00:15] VITALS: BP 103/65; PULSE 87; RESP 18; TEMP 36.4; O2SAT 100
[2023-05-31 06:02] LABS: Hemoglobin 8.9 g/dL (12.0-15.0)
[2023-05-31] MEDS: DOCUSATE SODIUM 100 MG CAPSULE PO (07:02)
[2023-05-31] MEDS: MULTIVIT/MIN/PREN/FOL AC/IRON TABLET 1 TAB PO (07:02)
[2023-05-31] MEDS: IBUPROFEN 600 MG TABLET PO (07:03)
[2023-05-31] MEDS: POLYSACCHARIDE IRON COMPLEX 150 MG CAPSULE PO (07:04)
[2023-05-31 09:30] VITALS: BP 119/77; PULSE 83; RESP 18; TEMP 36.6; O2SAT 97
--- NOTE | 2023-05-31 19:57 | PC.NURSE ---
1100 Patient viewed the discharge video Mother & Baby Care, The First Two Weeks . Patient was given the opportunity and encouraged to ask questions. Patient verbalized understanding of information shared and has been given the mother/baby guide for home reference.
[2023-06-02 10:46] VITALS: BP 123/78; PULSE 86; RESP 18; TEMP 37.1; O2SAT 100
== END 2023-05-31 17:15 | disposition home or self-care (01) | DRG 807 ==
LOC: ANHLDR 05-30 00:41 → ANHOB2 05-30 08:42 → ANHLDR 06-03 07:43 → ANHOB2 06-03 07:43 → ANHOBPP 06-03 07:43
PROVIDERS: Admitting Provider Obstetrics & Gynecology Gynecology; Visit Provider Student in an Organized Health Care Education/Training Program
DX: O24.429 Gestational diabetes mellitus in childbirth, unspecified control (principal); Z37.0 Single live birth; O70.1 Second degree perineal laceration during delivery; O66.0 Obstructed labor due to shoulder dystocia; Z3A.39 39 weeks gestation of pregnancy
CPT/HCPCS: 36415; 82948; 85014; 85018; 85025; 86592; 86850; 86900; 86901; 88307; A9270; J2590; J2795; J3010; J7120

== ENCOUNTER 2023-07-18 11:35 | Outpatient (CLI) | payer OTHER, SELFPAY ==
[2023-07-18 12:19] LABS: Glucose Fasting 99 mg/dL
[2023-07-18 13:14] LABS: Glucose 1 Hour 148 mg/dL
[2023-07-18 14:21] LABS: Glucose 2 Hour 115 mg/dL
[2023-07-19 01:45] LABS: Vitamin D 25 Hydroxy 39.5 ng/mL
== END 2023-07-18 11:36 | disposition home or self-care (01) ==
LOC: ANHLAB 11:38
PROVIDERS: Visit Provider Obstetrics & Gynecology Gynecology
DX: E55.9 Vitamin D deficiency, unspecified (principal)
CPT/HCPCS: 36415; 82306; 82951